=== PATIENT | male | born 1935 | race Caucasian/White ===

== ENCOUNTER 2020-07-01 14:09 | Day surgery (SDC) | payer MEDICARE ==
[~2020-07-01] VITALS: Ht 172.7 cm; Wt 80.8 kg
[~2020-07-01 14:09] MED LIST: ACET325T26 PO; ALPR0.254 PO; AMIO200T42 PO; ASPI81TA45 PO; ATOR40TA78 PO; BUPIVACAINE/PF 0.5% ONE; BUPR150T73 PO; CALC0.25 PO; CEFD300C37 PO; DEXT10TA7 PO; DILT120C11 PO; DILT90CA PO; DOCU-131 PO; DOXY100T PO; GABA300C10 PO; GENT15CR6 TP; ONDA4TAB13 PO; POTA20TA6 PO; ROSU10TA2 PO; VITA0.4T6 PO; WARF-36 PO-COUM; WARF1TAB2 PO; Warfarin Maintenance Protocol XX
[2020-07-01] MEDS ORDERED: ETOMIDATE 20 MG/10 ML ONE (14:24)
[2020-07-01] MEDS ORDERED: PROMETHAZINE 25 MG/ML, 1ML IVPush PRN (14:30)
[2020-07-01] MEDS ORDERED: CHLORHEXIDINE 15 ML UDC MM ONE (14:30)
[2020-07-01] MEDS ORDERED: SODIUM CHLORIDE 0.9% 1,000 ML IV SCH (14:30)
[2020-07-01] MEDS ORDERED: HALOPERIDOL 5 MG/ML IV PRN (14:30)
[2020-07-01] MEDS ORDERED: OXYcodone 5 MG/5 ML ORAL.SOL UDC PO PRN (14:30)
[2020-07-01] MEDS ORDERED: FENTANYL PF 100 MCG/2ML IV PRN (14:30)
[2020-07-01] MEDS ORDERED: HYDROmorphone 1 MG/ML, 1ML INJ IVPush PRN (14:30)
[2020-07-01] MEDS ORDERED: LABETALOL 5MG/ML, 20ML IV PRN (14:30)
[2020-07-01] MEDS ORDERED: hydrALAzine 20 MG/ML, 1ML IV PRN (14:30)
[2020-07-01] MEDS ORDERED: WARF4TAB65 PO (14:51)
[2020-07-01] MEDS ORDERED: ATOR20TA86 PO (14:51)
[2020-07-01 14:55] VITALS: BP 139/84
[2020-07-01] MEDS ORDERED: FENTANYL PF 100 MCG/2ML ONE ×2 (15:06→17:07)
[2020-07-01] MEDS ORDERED: ESMOLOL 100 MG/10 ML ONE (15:39)
[2020-07-01] MEDS ORDERED: EPINEPHRINE 1 MG/ML, 1ML ONE (15:39)
[2020-07-01] MEDS ORDERED: METOPROLOL 1 MG/ML, 5ML ONE (15:39)
[2020-07-01] MEDS ORDERED: ADENOSINE 6 MG/2 ML ONE (15:50)
[2020-07-01] MEDS ORDERED: BUPIVACAINE/EPI 0.5% 1:200K INFIL ONE (16:15)
[2020-07-01] MEDS ORDERED: DEXAMETHASONE 4 MG/ML, 1ML ONE (16:34)
[2020-07-01] MEDS ORDERED: SUCCINYLCHOLINE 20 MG/ML, 10ML ONE (16:34)
[2020-07-01] MEDS ORDERED: ONDANSETRON 2MG/ML, 2ML ONE (16:34)
[2020-07-01] MEDS ORDERED: NEOSTIGMINE 1 MG/ML, 10ML ONE (16:34)
[2020-07-01] MEDS ORDERED: PROPOFOL 10 MG/ML, 20ML ONE (16:34)
[2020-07-01] MEDS ORDERED: CEFAZOLIN 1,000 MG ONE (16:34)
[2020-07-01] MEDS ORDERED: ROCURONIUM 10MG/ML,5ML ONE (16:34)
[2020-07-01] MEDS ORDERED: GLYCOPYRROLATE 0.2MG/1ML, 5ML ONE (16:34)
[2020-07-01] MEDS ORDERED: OXYcodone 5 MG/5 ML ORAL.SOL UDC ONE (17:07)
== END 2020-07-01 18:45 | disposition home or self-care (01) ==
LOC: OUT 14:09
PROVIDERS: ATTEND Surgery
DX: T85.868A Thrombosis due to other internal prosthetic devices, implants and grafts, initial encounter (principal); Z20.828 Contact with and (suspected) exposure to other viral communicable diseases; I13.2 Hypertensive heart and chronic kidney disease with heart failure and with stage 5 chronic kidney disease, or end stage renal disease; N18.6 End stage renal disease; I50.9 Heart failure, unspecified; I48.91 Unspecified atrial fibrillation; D64.9 Anemia, unspecified; Z79.01 Long term (current) use of anticoagulants; Z79.899 Other long term (current) drug therapy; Z91.013 Allergy to seafood; Z82.49 Family history of ischemic heart disease and other diseases of the circulatory system; Y83.8 Other surgical procedures as the cause of abnormal reaction of the patient, or of later complication, without mention of misadventure at the time of the procedure
CPT/HCPCS: 36415; 49324; 82330; 82803; 82947; 84132; 84295; 85014; 87635; 93005; C1726; J0153; J0171; J0690; J2405; J2710; J3010; J7030; J1100; J2704; J0330

== ENCOUNTER 2020-09-13 04:54 | Emergency (ER) | payer MEDICARE ==
[~2020-09-13] VITALS: Ht 172.7 cm; Wt 81.0 kg
[~2020-09-13 04:54] MED LIST changes: +ATOR20TA86 PO; -BUPIVACAINE/PF 0.5% ONE; +WARF4TAB65 PO
--- NOTE | 2020-09-13 06:05 | NUR ---
Patient resting on stretcher, vss, nad, call wick within reach, will continue to monitor.
[2020-09-13 06:19] LABS: CHLORIDE 101 mmol/L (98-107)
[2020-09-13 06:24] LABS: ANION GAP 13 mmol/L (5-15); CALCIUM 8.8 mg/dL (8.5-10.1); CREATININE 7.22 mg/dL (0.7-1.3)
[2020-09-13] MEDS ORDERED: CEFAZOLIN 1,000 MG IM ONE (07:00)
[2020-09-13] MEDS ORDERED: CEFAZOLIN 1,000 MG ONE (07:32)
[2020-09-13 08:08] VITALS: BP 90/52
== END 2020-09-13 08:15 | disposition home or self-care (01) ==
LOC: ED 05:35
DX: T83.031A Leakage of indwelling urethral catheter, initial encounter (principal); Z99.2 Dependence on renal dialysis; Z87.891 Personal history of nicotine dependence
CPT/HCPCS: 36415; 80048; 96372; 99283; J0690

== ENCOUNTER 2020-09-23 12:33 | Day surgery (SDC) | payer MEDICARE ==
[~2020-09-23] VITALS: Ht 172.7 cm; Wt 81.6 kg
[2020-09-23] MEDS ORDERED: CEFAZOLIN PMX 1GM/50ML 50 ML IV ONE (13:30)
[2020-09-23] MEDS ORDERED: CHLORHEXIDINE 15 ML UDC MM ONE (13:30)
[2020-09-23] MEDS ORDERED: SODIUM CHLORIDE 0.9% 1,000 ML IV SCH (14:00)
[2020-09-23] MEDS ORDERED: CEFAZOLIN PMX 2GM/50ML 50 ML IVPB ONE (14:00)
[2020-09-23 14:19] VITALS: BP 127/82
[2020-09-23] MEDS ORDERED: BUPIVACAINE/PF 0.25% ONE (14:20)
[2020-09-23] MEDS ORDERED: THROMBIN 5,000 UNIT VIAL TP ONE (14:20)
[2020-09-23] MEDS ORDERED: EPINEPHRINE 1 MG/ML, 1ML ONE (14:20)
[2020-09-23] MEDS ORDERED: PAPAVERINE 30 MG/ML, 2ML ONE (14:20)
[2020-09-23] MEDS ORDERED: HEPARIN 1,000 UNITS/ML, 10ML ONE (14:20)
[2020-09-23] MEDS ORDERED: BUPIVACAINE/PF 0.5% ONE (14:20)
[2020-09-23] MEDS ORDERED: LIDOCAINE/PF 1%, 30ML ONE (14:20)
[2020-09-23 14:27] LABS: BASOPHILS % (AUTO) 2 % (0-1); EOSINOPHILS % (AUTO) 4 % (1-7); LYMPHOCYTES % (AUTO) 19 % (22-44); MEAN CORPUSCULAR HEMOGLOBIN 34.1 pg (27.5-34.5); MEAN CORPUSCULAR HGB CONC 33.3 g/dL (33.2-36.2); MEAN PLATELET VOLUME 8.6 fL (7.4-10.4); MONOCYTES % (AUTO) 9 % (2-9); NEUTROPHILS % (AUTO) 65 % (42-75); PLATELET COUNT 199 x10^3/uL (130-400); RED BLOOD COUNT 3.73 x10^6/uL (4.38-5.82); RED CELL DISTRIBUTION WIDTH 13.8 % (9.4-14.8)
[2020-09-23 14:36] LABS: INTERNATIONAL NORMALIZED RATIO 1.08 (0.93-1.1); PROTHROMBIN TIME 11.4 Seconds (9.6-11.5)
[2020-09-23 14:38] LABS: ANION GAP 7 mmol/L (5-15); CALCIUM 9.1 mg/dL (8.5-10.1); CHLORIDE 103 mmol/L (98-107); CREATININE 4.99 mg/dL (0.7-1.3)
[2020-09-23 14:43] LABS: MD NO
[2020-09-23] MEDS ORDERED: CEFAZOLIN 1,000 MG ONE (15:13)
[2020-09-23] MEDS ORDERED: NEOSTIGMINE 1 MG/ML, 10ML ONE (15:13)
[2020-09-23] MEDS ORDERED: GLYCOPYRROLATE 0.2MG/1ML, 5ML ONE (15:13)
[2020-09-23] MEDS ORDERED: PROPOFOL 10 MG/ML, 20ML ONE (15:13)
[2020-09-23] MEDS ORDERED: DEXAMETHASONE 4 MG/ML, 1ML ONE (15:13)
[2020-09-23] MEDS ORDERED: ROCURONIUM 10 MG/ML,10ML ONE (15:13)
[2020-09-23] MEDS ORDERED: FENTANYL PF 250 MCG/5ML ONE (15:17)
[2020-09-23] MEDS ORDERED: PROMETHAZINE 25 MG/ML, 1ML IV PRN (16:00)
[2020-09-23] MEDS ORDERED: MEPERIDINE/PF 25MG/0.5ML IVPush PRN (16:00)
[2020-09-23] MEDS ORDERED: HYDROmorphone 2 MG/ML, 1ML IVPush PRN (16:00)
[2020-09-23] MEDS ORDERED: KETOROLAC 30 MG/1 ML IV PRN (16:00)
[2020-09-23] MEDS ORDERED: DIAZEPAM 5 MG/ML, 2ML IVPush PRN (16:00)
[2020-09-23] MEDS ORDERED: ACETAMINOPHEN 325 MG TABLET PO PRN (16:00)
[2020-09-23] MEDS ORDERED: hydrALAzine 20 MG/ML, 1ML IV PRN (16:00)
[2020-09-23] MEDS ORDERED: OXYcodone 5 MG/5 ML ORAL.SOL UDC PO PRN (16:00)
[2020-09-23] MEDS ORDERED: LABETALOL 5MG/ML, 20ML IV PRN (16:00)
[2020-09-23] MEDS ORDERED: FENTANYL PF 100 MCG/2ML IV PRN (16:00)
[2020-09-23] MEDS ORDERED: ALBUTEROL SULFATE 2.5 MG/3 ML NPPB PRN (16:00)
[2020-09-23] MEDS ORDERED: PROTAMINE SULFATE 10 MG/ML, 5ML ONE (17:15)
[2020-09-23] MEDS ORDERED: DILTIAZEM 5 MG/ML, 5ML ONE (17:46)
[2020-09-23] MEDS ORDERED: FENTANYL PF 100 MCG/2ML ONE (18:02)
[2020-09-23] MEDS ORDERED: HYDR-1067 PO (18:03)
[2020-09-23] MEDS ORDERED: OXYcodone 5 MG/5 ML ORAL.SOL UDC ONE (19:25)
== END 2020-09-23 22:40 | disposition home or self-care (01) ==
LOC: OUT 12:33
PROVIDERS: ATTEND Surgery
DX: T85.898A Other specified complication of other internal prosthetic devices, implants and grafts, initial encounter (principal); I13.2 Hypertensive heart and chronic kidney disease with heart failure and with stage 5 chronic kidney disease, or end stage renal disease; N18.6 End stage renal disease; I50.9 Heart failure, unspecified; I48.91 Unspecified atrial fibrillation; Y83.8 Other surgical procedures as the cause of abnormal reaction of the patient, or of later complication, without mention of misadventure at the time of the procedure; Z20.822 Contact with and (suspected) exposure to COVID-19; Z91.013 Allergy to seafood; Z91.018 Allergy to other foods; Z79.01 Long term (current) use of anticoagulants; Z79.899 Other long term (current) drug therapy; Z72.89 Other problems related to lifestyle; Z87.891 Personal history of nicotine dependence
CPT/HCPCS: 36415; 36832; 49324; 80048; 85025; 85610; 85730; 87635; C1750; J0690; J1100; J1644; J2704; J2710; J2720; J3010; J7030; J0171; J2440

== ENCOUNTER → 2021-04-09 | Outpatient (CLI) | payer MEDICARE ==
[~2021-04-09] MED LIST changes: +HYDR-2214 PO; +REGADENOSON 0.4 MG/5 ML SYRINGE ONE
== END | disposition home or self-care (01) ==
LOC: CFH 07:47
PROVIDERS: ATTEND Internal Medicine Cardiovascular Disease
DX: I08.8 Other rheumatic multiple valve diseases (principal); I42.9 Cardiomyopathy, unspecified; I48.21 Permanent atrial fibrillation; I45.10 Unspecified right bundle-branch block; I11.0 Hypertensive heart disease with heart failure; I50.9 Heart failure, unspecified
CPT/HCPCS: 78452; 93017; 93306; A9502; J2785